=== PATIENT | female | born 1935 | race Two or more races ===

== ENCOUNTER 2021-05-25 08:00 | Outpatient (CLI) | payer OTHER | END 2021-05-25 08:30 | disposition home or self-care (01) | LOC: PPH VACUNA 08:00 | PROVIDERS: ATTEND Emergency Medicine Pediatric Emergency Medicine | DX: Z23 Encounter for immunization (principal) ==

== ENCOUNTER 2021-05-25 09:10 | Outpatient (CLI) | payer OTHER | END 2021-05-25 09:16 | disposition home or self-care (01) | LOC: TOM 09:10 | PROVIDERS: ATTEND Psychiatry & Neurology Clinical Neurophysiology | DX: J32.0 Chronic maxillary sinusitis (principal); R41.3 Other amnesia; I63.89 Other cerebral infarction ==